=== PATIENT | female | born 1995 | race Caucasian/White ===

== ENCOUNTER 2017-03-04 13:55 | Emergency (ER) | payer BC ==
[~2017-03-04] VITALS: Wt 56.0 kg
[~2017-03-04 13:55] MED LIST: DENIES
--- NOTE | 2017-03-04 15:00 | ERD ---
ER Documentation Chief Complaint Date/Time DATE: 03/04/17 TIME: 14:59 Chief Complaint FELT LUMP ON RIGHT BREAST HPI 21-year-old female otherwise healthy comes in with right-sided breast lump, also on and off chest pain for 1 month. She states that she is notices right breast lump for about a year, it is mildly tender to touching it, and has not grown in size. She also states that she has had pain in her chest in the center , radiates to the right in the left, on and off. She thinks it could be related to stress. She has not had any syncope, cough, fevers or chills. Denies constitutional symptoms. ROS All systems reviewed and are negative except as per history of present illness. Medications Home Meds Active Scripts Ibuprofen* (Motrin*) 600 Mg Tab, 600 MG PO Q6, #30 TAB Prov:PEARL TRAN PA-C 03/04/17 Reported Medications [Denies] No Conflict Check 12/07/10 Allergies Allergies: Coded Allergies: No Known Drug Allergies (Verified Allergy, Mild, 12/07/10) PMhx/Soc History of Surgery: No Anesthesia Reaction: No Hx Neurological Disorder: No Hx Respiratory Disorders: No Hx Cardiac Disorders: No Hx Psychiatric Problems: No Hx Miscellaneous Medical Probl: No Hx Alcohol Use: No Hx Substance Use: No Hx Tobacco Use: No Smoking Status: Never smoker Physical Exam Vitals Vital Signs Date Time Temp Pulse Resp B/P Pulse Ox O2 Delivery O2 Flow Rate FiO2 03/04/17 13:59 98.9 60 20 118/56 99 Physical Exam General: Well-developed, well-nourished. The patient appears in no acute distress. HEENT: Head is normocephalic, atraumatic. No scleral icterus. Neck supple nontender Lungs: Clear to auscultation. Normal air movement. Breasts: Mobile 1 cm tender nodular finding that can be appreciated at the 5 o' clock position of the right breast, no nodules, no other masses. Left breast unremarkable. Heart: Regular rate and rhythm. S1 and S2 are normal. No murmurs, gallops, or rubs. Abdomen: Soft, nontender, nondistended. Bowel sounds are normoactive. Extremities: No clubbing or cyanosis. Normal pulses. Moving extremities x 4. No weakness. Neurologic: Alert and oriented 3. No focal deficits. Skin: Normal turgor. No rash or lesions. Results 24 hrs DIAGNOSTIC IMAGING REPORT Patient: ALEXANDRA WAGNER : 1995 Age: 21 Sex: F MR #: [id number] DOS: 03/04/17 1447 Ordering MD: PEARL TRAN PA-C Location: [facility] Room/Bed: PROCEDURE: Chest Radiograph. CLINICAL INDICATION: Chest pain TECHNIQUE: Single frontal chest radiograph. COMPARISON: None available FINDINGS: The cardiomediastinal silhouette is within normal limits. No infiltrate or effusion is seen. The bones are intact. IMPRESSION: 1. Unremarkable chest radiograph. RPTAT: KK .Luis Gamble MD, MD Date Time Electronically viewed and signed by .Luis Gamble MD, MD on 2016 15:35 .B/ CC: PEARL TRAN PA-C DIAGNOSTIC IMAGING REPORT Patient: ALEXANDRA WAGNER : 1995 Age: 21 Sex: F MR #: [id number] DOS: 03/04/17 1447 Ordering MD: PEARL TRAN PA-C Location: [facility] Room/Bed: PROCEDURE: Right breast ultrasound. CLINICAL INDICATION: Right breast palpable lesion for 1 year. Right breast pain. TECHNIQUE: High-resolution sonography of the right breast was performed in the axial and sagittal planes. COMPARISON: No prior study is available for comparison. FINDINGS: There is no cystic or solid mass. Normal breast parenchyma is present. IMPRESSION: 1. Normal right breast ultrasound. 2. Any further management regarding any breast palpable lesion or pain should be based upon clinical grounds. RPTAT: QQ .Sang Angulo MD, Date Time Electronically viewed and signed by .aSng Angulo MD, MD on 03/04/2017 15:35 .R/ CC: PEARL TRAN PA-C Procedures/MDM 12-lead EKG(interpreted by supervising physician): Dr Brown Rate/Rhythm: Normal Sinus Rhythm, rate of 67 QRS, ST, T-waves: No changes consistent w/ acute ischemia, no intervals, no dysrhythmias, no ectopy Impression: No evidence of ischemia or arrhythmia MDM: 21 yo female comes in with a right breast nodular findings, with unremarkable breast ultrasound. No mass, no abscess, or suspicious lesions. She also complains of intermittent chest pain approximately for a month, no active chest pain at this time. Chest x-ray is unremarkable, EKG is normal. Doubt acute coronary syndrome, pulmonary embolus, dissection, electrolyte abnormalities, pneumonia, pneumothorax. Departure Diagnosis: Primary Impression: Breast pain Additional Impression: Chest pain Condition: Good PEARL TRAN PA-C Mar 04, 2017 15:00
--- NOTE | 2017-03-04 15:35 | RADRPT ---
PROCEDURE: Right breast ultrasound. CLINICAL INDICATION: Right breast palpable lesion for 1 year. Right breast pain. TECHNIQUE: High-resolution sonography of the right breast was performed in the axial and sagittal planes. COMPARISON: No prior study is available for comparison. FINDINGS: There is no cystic or solid mass. Normal breast parenchyma is present. IMPRESSION: 1. Normal right breast ultrasound. 2. Any further management regarding any breast palpable lesion or pain should be based upon clinica l grounds. RPTAT: QQ .Sang Angulo MD, MD Date Time Electronically viewed and signed by .Sang Angulo MD, MD on 03/04/2017 15:35 .R/
--- NOTE | 2017-03-04 15:36 | RADRPT ---
PROCEDURE: Chest Radiograph. CLINICAL INDICATION: Chest pain TECHNIQUE: Single frontal chest radiograph. COMPARISON: None available FINDINGS: The cardiomediastinal silhouette is within normal limits. No infiltrate or effusion is seen. Th e bones are intact. IMPRESSION: 1. Unremarkable chest radiograph. RPTAT: KK .Luis Gamble MD, MD Date Time Electronically viewed and signed by .Luis Gamble MD, on 03/04/2017 15:35 .B/
[2017-03-04] MEDS ORDERED: IBUP-1542 PO (15:37)
== END 2017-03-04 15:48 | disposition home or self-care (01) ==
LOC: FTE 13:55
DX: N64.4 Mastodynia (principal)
CPT/HCPCS: 71010; 76642; 93005